=== PATIENT | female | born 1980 | race Caucasian/White ===

== ENCOUNTER → 2017-09-18 | Outpatient (CLI) | payer BC ==
[~2017-09-18] MED LIST: Gadobenate Dimeglumine 529 MG/1 ML (20ML VIAL) ONE
== END ==
LOC: BICMRI 13:24
PROVIDERS: ATTEND Nurse Practitioner Family
DX: Z80.3 Family history of malignant neoplasm of breast (principal)
CPT/HCPCS: A9579; C8908

== ENCOUNTER 2018-05-11 20:30 | Outpatient (CLI) | payer BC | END 2018-05-11 20:31 | disposition home or self-care (01) | LOC: SLEEPLAB 20:30 | PROVIDERS: ATTEND Family Medicine | DX: R40.0 Somnolence (principal); G47.33 Obstructive sleep apnea (adult) (pediatric); Z68.30 Body mass index [BMI] 30.0-30.9, adult | CPT/HCPCS: 95811 ==

== ENCOUNTER 2018-06-24 14:43 | Outpatient (CLI) | payer BC ==
--- NOTE | 2018-06-24 16:14 | BD ---
DEXA BONE MINERAL DENSITY STUDY: Date: 06/24/18 HISTORY: Osteoporosis screening. Postmenopausal. COMPARISON: None. FINDINGS: Femoral Neck: 0.851 T-Score: 0.0 Z-Score: 0.3 Total Femur: 1.041 T-Score: 0.8 Z-Score: 1.0 WHO Classification: Normal. Lumbar Spine: BMD (g/cm2) L1 0.900 T-Score: -0.8 Z-Score: -0.7 L2 1.117 T-Score: 0.8 Z-Score: 1.0 L3 1.164 T-Score: 0.7 Z-Score: 0.9 L4 1.170 T-Score: 1.0 Z-Score: 1.2 L1-L4 1.094 T-Score: 0.4 Z-Score: 0.6 WHO Classification: Normal. IMPRESSION: Normal bone mineral density. POS: [facility]
== END 2018-06-24 14:44 | disposition home or self-care (01) ==
LOC: BICMAMMO 14:43
PROVIDERS: ATTEND Family Medicine
DX: Z12.31 Encounter for screening mammogram for malignant neoplasm of breast (principal); Z13.820 Encounter for screening for osteoporosis; Z78.0 Asymptomatic menopausal state; Z80.3 Family history of malignant neoplasm of breast
CPT/HCPCS: 77063; 77067; 77080

== ENCOUNTER 2018-09-07 14:26 | Outpatient (CLI) | payer BC | END 2018-09-07 14:27 | disposition home or self-care (01) | LOC: CTENTCT 14:26 | PROVIDERS: ATTEND Otolaryngology Plastic Surgery within the Head & Neck | DX: J32.9 Chronic sinusitis, unspecified (principal) | CPT/HCPCS: 70486 ==

== ENCOUNTER 2018-09-15 08:26 | Day surgery (SDC) | payer BC ==
[2018-09-14 15:34] VITALS: BMI 29.4
[2018-09-15] MEDS ORDERED: Oxymetazoline HCl 0.05% ( 15 ML ) ONE ×2 (09:24→10:24)
[2018-09-15] MEDS ORDERED: PROPOFOL 200 MG/20 ML VIAL ONE (10:13)
[2018-09-15] MEDS ORDERED: Glycopyrrolate 0.2 MG/ML 5 ML SYRINGE ONE (10:13)
[2018-09-15] MEDS ORDERED: Rocuronium Bromide 10 MG/ML (10ML VIAL) ONE (10:13)
[2018-09-15] MEDS ORDERED: Lidocaine 1% PF 5 ML VIAL ONE (10:13)
[2018-09-15] MEDS ORDERED: Dexamethasone 20 MG/5 ML VIAL ONE (10:13)
[2018-09-15] MEDS ORDERED: Ondansetron PF 4 MG/2 ML Vial ONE (10:13)
[2018-09-15] MEDS ORDERED: Bacitracin Zinc Ointment 30 gm TUBE ONE (10:24)
[2018-09-15] MEDS ORDERED: Lidocaine 1% w/Epinephrine 1:100K 20 ML VIAL ONE (10:24)
[2018-09-15] MEDS ORDERED: Fentanyl 100 MCG/2 ML VIAL ONE ×3 (10:26→12:32)
[2018-09-15] MEDS ORDERED: Midazolam HCl 2 mg/2 ml Vial ONE (10:26)
[2018-09-15] MEDS ORDERED: Morphine 4 MG/ML VIAL ONE (12:20)
[2018-09-15] MEDS ORDERED: Morphine 2 MG/ML SYRINGE ONE ×2 (13:21→13:40)
[2018-09-15] MEDS ORDERED: Hydrocodone-Acetamin 15 ML UDCUP ONE (14:33)
--- NOTE | 2018-09-17 09:55 | OP ---
DATE OF PROCEDURE: 09/15/2018 PREOPERATIVE DIAGNOSES: 1. Chronic rhinosinusitis. 2. Nasal septal deviation. 3. Bilateral inferior turbinate hypertrophy. 4. Nasal obstruction. POSTOPERATIVE DIAGNOSES: 1. Chronic rhinosinusitis. 2. Nasal septal deviation. 3. Bilateral inferior turbinate hypertrophy. 4. Nasal obstruction. PROCEDURES PERFORMED: 1. Bilateral endoscopic sinus surgery, total ethmoidectomies. 2. Bilateral endoscopic sinus surgery maxillary antrostomies. 3. Bilateral endoscopic sinus surgery frontal sinusotomies. 4. Bilateral endoscopic sinus surgery sphenoidotomies. 5. Nasal septoplasty. 6. Bilateral inferior turbinate submucosal resection. ESTIMATED BLOOD LOSS: 20 mL. COMPLICATIONS: None. ANESTHESIA: GETA. PROCEDURE: Patient was taken to the operating room and placed supine on the table. General endotracheal anesthesia was obtained by the anesthesia staff. Tube was secured in the left lower lip. Patient was then placed in the beach chair position, and Afrin pledgets were placed in the nasal cavity. Injections of 1% lidocaine with 1:100,000 epinephrine were made into the nasal septum as well as the inferior turbinates. Patient was then prepped and draped in standard surgical fashion for nasal surgery. Following this, the Afrin pledgets were removed. A [place] incision was made on the left nasal septum. Submucoperichondrial dissection was performed. The deviated portions of the septum included portions of the cartilage and the bony septum. These isolated areas were removed using 3 cutting rongeurs. There was noted to be a large dorsal and caudal strut, left intact for support of the nose. The mucoperichondrial flaps were then reapproximated using a 4-0 gut stitch. Any straight pieces of cartilage were crushed prior to this and placed between the mucoperichondrial flaps. Following this, the inferior turbinates were then punctured with a submucosal coblation wand, and submucosal coblations were performed of multiple areas of the inferior portion of the anterior inferior turbinate. Please note that the submucosal microdebrider was used to submucosally resect the anterior and inferior portions of the inferior turbinates bilaterally. Following this, the 0-degree scope was advanced into the middle meatus. were gently medialized with a [employer] elevator. Following this, the uncinate process was exposed and was anteriorly fractured bilaterally using the ball-ended probe. The uncinate process was then removed bilaterally using the straight microdebrider and the up-biting [place] forceps. Following this, the ethmoidal bulla was identified bilaterally and was punctured on its medial and inferior aspects. Following this the ethmoidal bulla was removed bilaterally using the straight microdebrider and up-biting [place]akesley forceps. Following this, the grand lamella was identified and was punctured into the posterior ethmoidal cells. Working from posterior to anterior, the ethmoidal cells were opened, the sphenoid sinus ostia was identified and was gently widened using the 0-degree microdebrider medially and inferiorly bilaterally. Following this, and 40-degree microdebrider blade were used to further open the frontal recess cells exposing the frontal sinus ostia bilaterally. Following this, widened using the microdebrider bilaterally. Mirapex was placed within the middle meatus. Jackson splints were placed and secured. Job ID: [id number]
== END 2018-09-15 13:25 | disposition home or self-care (01) ==
LOC: SDC 08:26
PROVIDERS: ATTEND Otolaryngology Plastic Surgery within the Head & Neck
PROC: 09TL7ZZ Resection of Nasal Turbinate, Via Natural or Artificial Opening (ICD-10-PCS; principal; 2018-09-15)
PROC: 09TU8ZZ Resection of Right Ethmoid Sinus, Via Natural or Artificial Opening Endoscopic (ICD-10-PCS; principal; 2018-09-15)
PROC: 099T8ZZ Drainage of Left Frontal Sinus, Via Natural or Artificial Opening Endoscopic (ICD-10-PCS; principal; 2018-09-15)
PROC: 099Q8ZZ Drainage of Right Maxillary Sinus, Via Natural or Artificial Opening Endoscopic (ICD-10-PCS; principal; 2018-09-15)
PROC: 09SM0ZZ Reposition Nasal Septum, Open Approach (ICD-10-PCS; principal; 2018-09-15)
PROC: 099X8ZZ Drainage of Left Sphenoid Sinus, Via Natural or Artificial Opening Endoscopic (ICD-10-PCS; principal; 2018-09-15)
PROC: 099S8ZZ Drainage of Right Frontal Sinus, Via Natural or Artificial Opening Endoscopic (ICD-10-PCS; principal; 2018-09-15)
PROC: 099R8ZZ Drainage of Left Maxillary Sinus, Via Natural or Artificial Opening Endoscopic (ICD-10-PCS; principal; 2018-09-15)
PROC: 099W8ZZ Drainage of Right Sphenoid Sinus, Via Natural or Artificial Opening Endoscopic (ICD-10-PCS; principal; 2018-09-15)
PROC: 09TV8ZZ Resection of Left Ethmoid Sinus, Via Natural or Artificial Opening Endoscopic (ICD-10-PCS; principal; 2018-09-15)
DX: J32.4 Chronic pansinusitis (principal); J34.2 Deviated nasal septum; J34.3 Hypertrophy of nasal turbinates; J34.89 Other specified disorders of nose and nasal sinuses; J30.9 Allergic rhinitis, unspecified; J35.1 Hypertrophy of tonsils; H69.83 Other specified disorders of Eustachian tube, bilateral; F40.01 Agoraphobia with panic disorder; Z79.899 Other long term (current) drug therapy; Z88.0 Allergy status to penicillin
CPT/HCPCS: 85014; J0131; J1100; J2001; J2250; J2270; J2405; J2704; J3010

== ENCOUNTER 2018-09-20 01:39 | Emergency (ER) | payer BC ==
[2018-09-20 03:26] LABS: BHCG - Serum Negative (NEGATIVE); Pregs Control Background? CLEAR/WHITE (CLR/WHITE); Pregs Control Bar Appear? YES (CONTROL BAR)
[2018-09-20 03:28] LABS: #Basophils 0.1 thou/uL (0.0-0.2); #Eosinphils 0.2 thou/uL (0.0-0.7); #Lymphocytes 1.5 thou/uL (1.20-3.40); #Monocytes 0.9 thou/uL (0.11-0.59); #Neutrophils 6.6 thou/uL (1.40-6.50); %Basophils 0.6 % (0.0-1.0); %Eosinophils 1.8 % (0.0-10.0); %Lymphocytes 16.6 % (21.0-51.0); Hemoglobin 14.7 g/dL (12.0-16.0); Mean Corpuscular HGB CONC 33.8 g/dL (32.0-36.0); Mean Corpuscular Volume 94.6 fL (78.0-98.0); Mean Platelet Volume 7.4 fL (7.4-10.4); Platelet Count 255 thou/uL (130-400); RBC Distribution Width 11.9 % (11.5-14.5); White Blood Cell (WBC) Count 9.2 thou/uL (4.8-10.8)
[2018-09-20 03:48] LABS: PTT 27.9 SEC (22.9-36.1); Prothrombin Time 12.7 SEC (12.0-14.7)
[2018-09-20] MEDS ORDERED: Ondansetron PF 4 MG/2 ML Vial ONE (03:55)
[2018-09-20] MEDS ORDERED: Oxymetazoline HCl 0.05% ( 15 ML ) ONE (03:56)
[2018-09-20] MEDS ORDERED: Ondansetron ODT 4 MG TAB ONE (03:56)
[2018-09-20] MEDS ORDERED: Diazepam 5 MG TAB ONE (04:10)
[2018-09-20] MEDS ORDERED: HYDROcodone/Acetaminophen 5/325 mg Tablet ONE (04:34)
== END 2018-09-20 05:03 | disposition home or self-care (01) ==
LOC: ERS 01:39
DX: R04.0 Epistaxis (principal); E03.9 Hypothyroidism, unspecified
CPT/HCPCS: 30903; 36415; 84703; 85025; 85610; 85730; J2405; Q0162

== ENCOUNTER 2018-09-22 08:44 | Day surgery (SDC) | payer BC ==
[2018-09-22] MEDS ORDERED: Oxymetazoline HCl 0.05% ( 15 ML ) ONE ×2 (10:10→10:39)
[2018-09-22] MEDS ORDERED: Lidocaine 1% w/Epinephrine 1:100K 20 ML VIAL ONE (10:10)
[2018-09-22 10:46] LABS: Hemoglobin 14.5 g/dL (12.0-16.0); Platelet Count 247 thou/uL (130-400)
[2018-09-22] MEDS ORDERED: Fentanyl 100 MCG/2 ML VIAL ONE ×4 (11:01→13:06)
[2018-09-22 11:05] LABS: ALT (SGPT) Less than 7 U/L (8-55); AST (SGOT) 10 U/L (5-34); Albumin 4.6 g/dL (3.5-5.0); Alkaline Phosphatase 65 U/L (40-150); Anion Gap 15 mmol/L (10-20); BUN (Urea Nitrogen) 13 mg/dL (7.0-18.7); Bilirubin, Total 0.5 mg/dL (0.2-1.2); Calc. Creatinine Clearance 0 mL/min (70-130); Calcium 10.1 mg/dL (7.8-10.44); Carbon Dioxide 26 mmol/L (22-29); Chloride 102 mmol/L (98-107); Estimated GFR-MDRD 81; Globulin 3.4 g/dL (2.4-3.5); Glucose 91 mg/dL (70-105); Potassium 4.1 mmol/L (3.5-5.1); Sodium 139 mmol/L (136-145)
[2018-09-22] MEDS ORDERED: Lidocaine 1% PF 5 ML VIAL ONE (11:44)
[2018-09-22] MEDS ORDERED: Ondansetron PF 4 MG/2 ML Vial ONE (11:44)
[2018-09-22] MEDS ORDERED: PROPOFOL 200 MG/20 ML VIAL ONE (11:44)
[2018-09-22] MEDS ORDERED: Dexamethasone 20 MG/5 ML VIAL ONE (11:44)
[2018-09-22] MEDS ORDERED: Succinylcholine Chloride 20 MG/ML 10 ml SYRINGE FS ONE (11:44)
[2018-09-22] MEDS ORDERED: Bacitracin Zinc Ointment 30 gm TUBE ONE (11:57)
[2018-09-22] MEDS ORDERED: Morphine 4 MG/ML VIAL ONE (12:48)
[2018-09-22] MEDS ORDERED: Morphine 2 MG/ML SYRINGE ONE (13:00)
[2018-09-22] MEDS ORDERED: Hydrocodone-Acetamin 15 ML UDCUP ONE (14:05)
--- NOTE | 2018-09-23 11:07 | OP ---
DATE OF PROCEDURE: 09/22/2018 PREOPERATIVE DIAGNOSES: 1. Epistaxis. 2. Chronic rhinosinusitis. POSTOPERATIVE DIAGNOSES: 1. Epistaxis. 2. Chronic rhinosinusitis. PROCEDURES: 1. Bilateral endoscopic nasal debridement. 2. Bilateral endoscopic control of epistaxis. ESTIMATED BLOOD LOSS: 20 mL. COMPLICATIONS: None. ANESTHESIA: GETA. DESCRIPTION OF PROCEDURE: The patient was taken to the operating room, placed supine on the table. General endotracheal anesthesia was obtained by Anesthesia staff. Tube was secured in the left lower lip. Patient was placed in a beach chair position, was prepped and draped for standard nasal procedure. Following this, the 0 degree endoscope was advanced in the nasal cavity. There were some blood clots that were suctioned using a Torres tip suction bilaterally. The left ethmoidal sinuses, maxillary sinus, and frontal sinus area was visualized. There was no active bleeding. On the right side, there was some oozing from the right middle turbinate as well as generalized oozing from the inflamed tissue in the ethmoidal area. A Valsalva was performed and there was no significant or active arterial bleeding noticed. The nasal cavity was then irrigated. The previously placed Surgicel was removed and a curved suction was then used to irrigate the maxillary sinus as well as frontal sinuses bilaterally. On this, Mirapex was placed within the middle meatus. Jackson splints were placed and secured to the nasal septum. The patient procedure tolerated the procedure well. Job ID: [id number]
== END 2018-09-22 15:29 | disposition home or self-care (01) ==
LOC: SDC 08:44
PROVIDERS: ATTEND Otolaryngology Plastic Surgery within the Head & Neck
PROC: 093K8ZZ Control Bleeding in Nasal Mucosa and Soft Tissue, Via Natural or Artificial Opening Endoscopic (ICD-10-PCS; principal; 2018-09-22)
DX: R04.0 Epistaxis (principal); J32.4 Chronic pansinusitis; H69.83 Other specified disorders of Eustachian tube, bilateral; J30.9 Allergic rhinitis, unspecified; F40.01 Agoraphobia with panic disorder; Z88.0 Allergy status to penicillin; Z88.5 Allergy status to narcotic agent; Z88.8 Allergy status to other drugs, medicaments and biological substances; Z79.899 Other long term (current) drug therapy; Z98.890 Other specified postprocedural states
CPT/HCPCS: 80053; 85014; 85018; 85049; J1100; J2001; J2270; J2405; J2704; J3010

== ENCOUNTER 2018-12-27 07:54 | Outpatient (CLI) | payer BC ==
--- NOTE | 2018-12-27 10:19 | MRI ---
BILATERAL BREAST MRI WITH AND WITHOUT IV CONTRAST AND 3D POSTPROCESSING ON AN INDEPENDENT WORKSTATION : Date: 12/27/18 HISTORY: Positive BRCA gene. Genetic susceptibility to malignant breast neoplasm. COMPARISON: Breast MRI of 09/18/17 and 03/05/17. CORRELATION: Bilateral mammograms of 06/24/18. FINDINGS: A few tiny cysts are again seen. No suspicious masses or enhancement is identified on either side. No axillary or internal mammary lymphadenopathy seen. The probable hemangioma in the left lobe of the liver is stable. IMPRESSION: BIRADS Category 2 - Benign findings. Return to age-appropriate screening based on risk factors. This exam was interpreted in consultation with Dr. Lev Garner, who concurs. POS: [facility]
== END 2018-12-27 07:55 | disposition home or self-care (01) ==
LOC: BICMRI 07:54
PROVIDERS: ATTEND Family Medicine
DX: Z15.01 Genetic susceptibility to malignant neoplasm of breast (principal)
CPT/HCPCS: A9577; C8908

== ENCOUNTER 2019-02-22 12:42 | Outpatient (CLI) | payer BC ==
--- NOTE | 2019-02-22 12:59 | RAD ---
EXAM: XR Foot Rt 3 View STANDARD DATE: 02/22/2019 12:00 AM INDICATION: Right foot pain for one month COMPARISON: None. FINDING: No acute fracture or subluxation demonstrated. The Lisfranc alignment appears within normal limits. No radiopaque foreign body is noted. IMPRESSION:No acute fracture or subluxation demonstrated.
== END 2019-02-22 12:43 | disposition home or self-care (01) ==
LOC: BICRAD 12:42
PROVIDERS: ATTEND Physician Assistant Medical
DX: M79.671 Pain in right foot (principal)

== ENCOUNTER 2019-05-27 07:20 | Outpatient (CLI) | payer BC ==
--- NOTE | 2019-05-27 08:01 | ULT ---
ULTRASOUND ABDOMEN LIMITED: (RIGHT UPPER QUADRANT) DATE: 05/27/2019 HISTORY: 38-year-old female with right upper quadrant abdominal pain FINDINGS: Gallbladder:No mural thickening, pericholecystic fluid, or sonographic Strickland's. 2 tiny polyps, 4 mm and 6 mm in size each. No gallstones or sludge identified. Common duct: 4 mm. Liver:Normal size and echogenicity. Large 5 x 3.5 x 5 cm hyperechoic mass in left lobe without shadow ing. Pancreas:Nonspecific sonographic appearance. Right kidney:No hydronephrosis. IMPRESSION: 1) large 5 cm mass in the left lobe of liver. Patient states that she had an MRI that showed hemangio ma in liver. No abdominal MRI is found on [facility] PACS. The report or the images of that MRI from outside institution should be presented to the radiologist for review so that an addendum can be issu ed to this ultrasound report. If that is not available, we recommend dedicated MRI of the abdomen, liver mass protocol, with and without contrast. (Or CT if MRI is contraindicated). 2) no sonographic evidence of cholelithiasis or cholecystitis. 3) incidental finding of a few tiny gallbladder polyps.
== END 2019-05-27 07:21 | disposition home or self-care (01) ==
LOC: SCSULT 07:20
PROVIDERS: ATTEND Internal Medicine Gastroenterology
DX: K21.9 Gastro-esophageal reflux disease without esophagitis (principal); R10.13 Epigastric pain; R19.4 Change in bowel habit; R16.0 Hepatomegaly, not elsewhere classified; K82.4 Cholesterolosis of gallbladder
CPT/HCPCS: 76705

== ENCOUNTER 2019-06-15 07:49 | Outpatient (CLI) | payer BC ==
--- NOTE | 2019-06-15 10:28 | CT ---
CT ABDOMEN WITH AND WITHOUT IV CONTRAST: CT PELVIS WITH IV CONTRAST: HISTORY: Abdominal pain. Liver lesion. FINDINGS: There are mild dependent changes in the lung bases. No calcified gallstones are seen. No calculi are seen in the kidneys, ureters or urinary bladder. No hydroureteronephrosis is noted on either side. Th e spleen, pancreas, adrenal glands and kidneys are normal. There is a 4 cm mass in the left lobe of the liver with peripheral nodular enhancement and incomplete filling on the delayed images. No free air, free fluid or lymphadenopathy is seen in the abdomen or pelvis. The small bowel loops ar e not abnormally dilated. The appendix is normal. A uterus is present. No osteolytic or osteoblastic lesions are identified. IMPRESSION: Findings suspicious for a left liver lobe hemangioma. Recommend confirmation with technetium 99m labeled RBC scan. POS: [facility]
== END 2019-06-15 07:50 | disposition home or self-care (01) ==
LOC: BICCT 07:49
PROVIDERS: ATTEND Internal Medicine Gastroenterology
DX: K76.9 Liver disease, unspecified (principal); R10.84 Generalized abdominal pain; R93.3 Abnormal findings on diagnostic imaging of other parts of digestive tract
CPT/HCPCS: 74178

== ENCOUNTER 2019-06-24 10:29 | Emergency (ER) | payer BC ==
--- NOTE | 2019-06-24 11:30 | CT ---
CT BRAIN NONCONTRAST: DATE: 06/24/2019 HISTORY: 38 year old female with altered mental status, nausea, facial paresthesia and blurred vision with hea dache. FINDINGS: There is no evidence of acute intra-axial or extra-axial hemorrhage. There is no midline shift or any other mass effect. There is no extra-axial fluid collection. There is no evidence of obstructive hydrocephalus. Calvarium is intact. IMPRESSION: No acute intracranial findings.
[2019-06-24 11:59] LABS: #Eosinphils 0.1 thou/uL (0.0-0.7); #Lymphocytes 2.2 thou/uL (1.20-3.40); #Monocytes 0.8 thou/uL (0.11-0.59); #Neutrophils 5.1 thou/uL (1.40-6.50); %Basophils 0.5 % (0.0-1.0); %Eosinophils 1.3 % (0.0-10.0); %Monocytes 9.9 % (0.0-10.0); %Neutrophils 62.3 % (42.0-75.0); Hemoglobin 15.2 g/dL (12.0-16.0); Mean Corpuscular HGB CONC 34.6 g/dL (32.0-36.0); Mean Corpuscular Hemoglobin 32.1 pg (27.0-31.0); Mean Corpuscular Volume 92.9 fL (78.0-98.0); Mean Platelet Volume 7.2 fL (7.4-10.4); Platelet Count 251 thou/uL (130-400); RBC Distribution Width 11.7 % (11.5-14.5); Red Blood Cell (RBC) Count 4.73 mill/uL (4.20-5.40); White Blood Cell (WBC) Count 8.2 thou/uL (4.8-10.8)
--- NOTE | 2019-06-24 12:04 | CT ---
CT ANGIOGRAM NECK WITH CONTRAST CT ANGIOGRAM BRAIN WITH CONTRAST: DATE: 06/24/2019 HISTORY: 38-year-old female with loss of consciousness, headache, and facial paresthesia after chiropractor ce rvical manipulation. TECHNIQUE: After IV contrast injection, arterial bolus chasing technique scan performed from aortic arch to vert ex of head. Coronal and sagittal 3-D MIP reconstructions. FINDINGS: No evidence of dissection, atherosclerotic plaque, or significant stenosis, of bilateral cervical and intracranial vertebral arteries, common carotid arteries, internal carotid arteries, anterior circulation yocha dehe of Justice, M1 segments of MCA's, basilar artery, posterior cerebrals, and superior cerebellars. Brachiocephalic and bilateral subclavian arteries are also normal. IMPRESSION: Negative
[2019-06-24 12:15] LABS: ALT (SGPT) 7 U/L (8-55); AST (SGOT) 15 U/L (5-34); Albumin 4.4 g/dL (3.5-5.0); Alkaline Phosphatase 64 U/L (40-110); Anion Gap 13 mmol/L (10-20); BUN (Urea Nitrogen) 17 mg/dL (7.0-18.7); Bilirubin, Total 0.4 mg/dL (0.2-1.2); Calc. Creatinine Clearance 0 mL/min (70-130); Calcium 9.5 mg/dL (7.8-10.44); Carbon Dioxide 25 mmol/L (22-29); Chloride 103 mmol/L (98-107); Estimated GFR-MDRD 89; Globulin 2.8 g/dL (2.4-3.5); Glucose 74 mg/dL (70-105); Potassium 3.5 mmol/L (3.5-5.1); Protein, Total 7.2 g/dL (6.0-8.3); Sodium 137 mmol/L (136-145)
[2019-06-24] MEDS ORDERED: Iopamidol-370 76% 500 ML 1 ML ONE (16:23)
== END 2019-06-24 14:01 | disposition home or self-care (01) ==
LOC: ERS 10:29
DX: R41.82 Altered mental status, unspecified (principal); E03.9 Hypothyroidism, unspecified; Z79.899 Other long term (current) drug therapy
CPT/HCPCS: 36415; 70450; 70496; 70498; 80053; 85025; 93005; Q9967

== ENCOUNTER 2019-07-19 08:03 | Outpatient (CLI) | payer BC ==
--- NOTE | 2019-07-19 12:37 | CT ---
EXAM: CTA abdomen and pelvis HISTORY: Breast cancer. Evaluate deep inferior epigastric perforating arteries for road freight firer flap re construction of the breast. COMPARISON: None TECHNIQUE: Multiple contiguous axial images were obtained a CTA of the abdomen and pelvis without and with contrast. Sagittal and coronal 3-D MIP reformats were performed. FINDINGS: LIVER: Unremarkable. GALLBLADDER: Unremarkable. KIDNEYS: Unremarkable. SPLEEN: Unremarkable. PANCREAS: Unremarkable. BOWEL: Unremarkable. RETROPERITONEUM: No lymphadenopathy ABDOMINAL WALL SOFT TISSUES: Unremarkable BONES: Degenerative changes in the spine. ABDOMINAL AORTA: Normal caliber without evidence of dissection or aneurysmal dilatation. CELIAC TRUNK: Patent SMA: Patent DONNA: Patent RENAL ARTERIES: Bilateral single renal arteries without significant atherosclerotic disease The bilateral deep inferior epigastric arteries are patent. These are seen within the central aspect of the rectus abdominis muscle bilaterally. The perforating artery on the right has a branch 7 mm from the anterior aspect of the rectus abdominis muscle. The perforating artery on the left has a bra nch approximately 1.6 cm from the anterior aspect of the rectus abdominis muscle. IMPRESSION: Deep inferior epigastric road freight firer arteries as above.
== END 2019-07-19 08:04 | disposition home or self-care (01) ==
LOC: CT 08:03
DX: Z15.01 Genetic susceptibility to malignant neoplasm of breast (principal)
CPT/HCPCS: 74174; 76377

== ENCOUNTER 2019-09-30 08:52 | Outpatient (CLI) | payer BC ==
--- NOTE | 2019-09-30 12:14 | NM ---
HEPATOBILIARY SCAN: HISTORY:Right upper quadrant pain. No gallstones and ultrasound of 05/27/2019 RADIOPHARMACEUTICAL: 5.3 mCi Technetium 99m Mebrofenin injected intravenously FINDINGS: There is normal tracer extraction by the liver with normal excretion into the biliary tracts and smal l bowel loops and normal filling of the gallbladder. The calculated gallbladder ejection fraction following an oral fatty meal measures 50%. IMPRESSION:Normal exam.
== END 2019-09-30 08:53 | disposition home or self-care (01) ==
LOC: NM 08:52
PROVIDERS: ATTEND Internal Medicine Gastroenterology
DX: R10.13 Epigastric pain (principal); R10.11 Right upper quadrant pain; K76.9 Liver disease, unspecified; Z86.010 Personal history of colon polyps
CPT/HCPCS: 78227; A9537

== ENCOUNTER 2020-01-20 09:49 | Outpatient (CLI) | payer BC ==
--- NOTE | 2020-01-20 14:59 | MRI ---
BILATERAL BREAST MRI WITH AND WITHOUT IV CONTRAST AND 3D POST PROCESSING ON AN INDEPENDENT WORK STATI ON: HISTORY: Positive BRCA gene. Genetic susceptibility to malignant breast neoplasm. COMPARISON: 12/27/2018. FINDINGS: A few tiny cysts are again seen. There has been interval development of a 2 cm peripherally enhancin g mass in the posterior aspect of the lower outer quadrant of the right breast. No axillary or inter nal lymphadenopathy is seen. The probable hemangioma in the left lobe of the liver is stable. IMPRESSION: BIRADS category 5: Highly suggestive of malignancy. RECOMMENDATIONS: A bilateral diagnostic mammogram and a right breast ultrasound should be performed. An ultrasound-gu ided right breast biopsy is recommended. Communication with Dr. Cy Yeung via [place] at 2:09 p.m. CODE CR
== END 2020-01-20 09:50 | disposition home or self-care (01) ==
LOC: BICMRI 09:49
PROVIDERS: ATTEND Obstetrics & Gynecology
DX: Z15.01 Genetic susceptibility to malignant neoplasm of breast (principal)
CPT/HCPCS: A9577; C8908

== ENCOUNTER 2020-01-26 13:52 | Outpatient (CLI) | payer BC ==
--- NOTE | 2020-01-26 15:33 | MMO ---
Bilateral MAMMO Bilat Diag [facility]Z. CLINICAL HISTORY: Patient is 39 years old and is seen for diagnostic exam. The patient has the following family history of breast cancer: paternal aunt, at age 40. The patient has no personal history of cancer. VIEWS: The views performed were: bilateral craniocaudal with tomosynthesis; bilateral mediolateral oblique with tomosynthesis; and bilateral mediolateral with tomosynthesis. FILMS COMPARED: The present examination has been compared to prior imaging studies performed at [facility] on 04/22/2019, and at [facility] on 12/27/2018, 01/20/2020 and 01/26/2020. This study has been interpreted with the assistance of computer-aided detection. MAMMOGRAM FINDINGS: There are scattered fibroglandular densities. There is a new lobular mass measuring 23 millimeters seen in the posterior upper-outer region of the right breast. In the left breast, there are no suspicious masses, calcifications or areas of architectural distortion. IMPRESSION: NEW MASS IN THE RIGHT BREAST IS HIGHLY SUGGESTIVE OF MALIGNANCY. BIOPSY IS RECOMMENDED. THE RESULTS OF THIS EXAM WERE SENT TO THE PATIENT. ACR BI-RADS Category 5 - Highly suggestive of malignancy - appropriate action should be taken MAMMOGRAPHY NOTE: 1. A negative mammogram report should not delay a biopsy if a dominant of clinically suspicious mass is present. 2. Approximately 10% to 15% of breast cancers are not detected by mammography. 3. Adenosis and dense breasts may obscure an underlying neoplasm. Reported by: SHAI JARQUIN MD Electonically Signed: [id number]
--- NOTE | 2020-01-26 18:31 | ULT ---
RIGHT BREAST ULTRASOUND: 01/26/20 HISTORY: Recent breast MRI demonstrates a category 5 lesion on the right. FINDINGS: Focused ultrasound of the right breast in the upper outer quadrant demonstrates a solid macrolobulate d hypoechoic mass measuring 2.0 x 1.4 x 1.6 cm correlating in size and location with the MRI finding. This is highly suggestive of malignancy. Focused ultrasound in the right axilla demonstrates no lymp hadenopathy. IMPRESSION: BIRADS 5: Highly Suggestive of Malignancy - Appropriate Action Should Be Taken Requires biopsy or surgical treatment. The patient reports that she is scheduled for an ultrasound guided biopsy to be performed by a breast surgeon on 01/27/20.
== END 2020-01-26 13:53 | disposition home or self-care (01) ==
LOC: BICMAMMO 13:52
PROVIDERS: ATTEND Obstetrics & Gynecology
DX: R92.8 Other abnormal and inconclusive findings on diagnostic imaging of breast (principal); R92.2 Inconclusive mammogram; N63.10 Unspecified lump in the right breast, unspecified quadrant
CPT/HCPCS: 77066; G0279

== ENCOUNTER 2020-02-03 06:49 | Outpatient (CLI) | payer BC, OTHER ==
[2020-02-03 14:34] LABS: Anion Gap 15 mmol/L (10-20); BUN (Urea Nitrogen) 17 mg/dL (7.0-18.7); Calc. Creatinine Clearance 0 mL/min (70-130); Calcium 9.4 mg/dL (7.8-10.44); Carbon Dioxide 22 mmol/L (22-29); Chloride 106 mmol/L (98-107); Estimated GFR-MDRD 86; Glucose 88 mg/dL (70-105); Potassium 4.1 mmol/L (3.5-5.1); Sodium 139 mmol/L (136-145)
[2020-02-04 11:35] LABS: SARS-CoV-2 MS2 Positive; SARS-CoV-2 N Gene Negative; SARS-CoV-2 S Gene Negative; SARS-CoV-2 orf1ab Negative
== END 2020-02-03 06:50 | disposition home or self-care (01) ==
LOC: LABBT 06:49
PROVIDERS: ATTEND Surgery
DX: Z01.812 Encounter for preprocedural laboratory examination (principal); Z11.59 Encounter for screening for other viral diseases; C50.911 Malignant neoplasm of unspecified site of right female breast
CPT/HCPCS: 80048; 87635; U0003

== ENCOUNTER 2020-02-03 13:40 | Outpatient (CLI) | payer BC, OTHER | END 2020-02-03 13:41 | disposition home or self-care (01) | LOC: ULT 13:40 | PROVIDERS: ATTEND Internal Medicine Hematology & Oncology | DX: Z51.11 Encounter for antineoplastic chemotherapy (principal); Z15.01 Genetic susceptibility to malignant neoplasm of breast; Z79.899 Other long term (current) drug therapy | CPT/HCPCS: 80048; 87635; 93306; U0003 ==

== ENCOUNTER 2020-02-08 13:27 | Day surgery (SDC) | payer BC ==
[2020-02-03 13:08] VITALS: BMI 32.8
[~2020-02-08 13:27] MED LIST changes: -Gadobenate Dimeglumine 529 MG/1 ML (20ML VIAL) ONE; +Lidocaine 1% PF 5 ML VIAL ONE; +PROPOFOL 200 MG/20 ML VIAL ONE
[2020-02-08] MEDS ORDERED: Fentanyl 100 MCG/2 ML VIAL ONE ×2 (16:31→16:58)
[2020-02-08] MEDS ORDERED: Bupivacaine 0.25% HCL 30 ML VIAL ONE (16:54)
[2020-02-08] MEDS ORDERED: Lidocaine 2% PF 5 ML VIAL ONE (16:55)
[2020-02-08] MEDS ORDERED: Levofloxacin 500 mg/D5W 100 ml Premix Bag ONE (16:55)
[2020-02-08] MEDS ORDERED: Midazolam HCl 2 mg/2 ml Vial ONE (16:58)
[2020-02-08] MEDS ORDERED: traMADol HCl 50 MG TAB ONE (18:35)
--- NOTE | 2020-02-08 18:35 | RAD ---
PORTABLE CHEST: 02/08/20 HISTORY: Mediport placement. Heart size within normal limits. Left sided Mediport catheter is seen. Catheter tip overlying the sup erior vena cava. No signs of pneumothorax. Lungs are clear of infiltrates. IMPRESSION: Mediport catheter placement. No signs of pneumothorax. POS: [facility]
--- NOTE | 2020-02-09 00:07 | OP ---
DATE OF PROCEDURE: 02/08/2020 PREOPERATIVE DIAGNOSIS: Breast cancer. POSTOPERATIVE DIAGNOSIS: Breast cancer. PROCEDURE: Tunneled central line with subcutaneous port (MediPort, CT injectable). ANESTHESIA: TIVA and local. ESTIMATED BLOOD LOSS: Minimal. COMPLICATIONS: None. FINDINGS: The tip of the catheter is at the atriocaval junction. DESCRIPTION OF PROCEDURE: The patient was taken to the operating room and laid supine on the operating room table. After sedation was obtained, bilateral neck and chest were prepped and draped in a sterile fashion. Local anesthetic was infiltrated over the left internal jugular vein. Internal jugular vein was cannulated using a 22-gauge finder needle followed by a Seldinger needle. Wire was passed with some difficulty into the superior vena cava under fluoro guidance. A small luis m is made at the wire entrance site. A separate 3-cm incision was made in the left upper chest below the collarbone. Subcutaneous pocket was made below the lower incision. Tubing for the MediPort tunneled from the inferior to superior incision, and introducer sheath was placed over the wire into the superior vena cava under fluoro guidance. The dilator and wire were removed. The end of catheter sewed into the sheath. The sheath was peeled away. The tip of the catheter is at the atriocaval junction. The MediPort tubing cut to fit the MediPort at the lower incision. The tubing is connected to the MediPort which was sewn to the chest wall in a subcutaneous pocket using Prolene. The MediPort flushes and draws blood without difficulty. It was flushed with a heparin flush. The wounds were all irrigated and closed using 3-0 Vicryl, 4-0 Monocryl, and Dermabond. The MediPort is left accessed and two Tegaderms used to cover it. The patient was sent to Recovery in stable condition. All instrument counts, needle counts, and lap counts are correct. Job ID: [id number]
== END 2020-02-08 19:05 | disposition home or self-care (01) ==
LOC: SDC 13:27
PROVIDERS: ATTEND Surgery
PROC: B518ZZA Fluoroscopy of Superior Vena Cava, Guidance (ICD-10-PCS; principal; 2020-02-08)
PROC: 02HV33Z Insertion of Infusion Device into Superior Vena Cava, Percutaneous Approach (ICD-10-PCS; principal; 2020-02-08)
PROC: 0JH60WZ Insertion of Totally Implantable Vascular Access Device into Chest Subcutaneous Tissue and Fascia, Open Approach (ICD-10-PCS; principal; 2020-02-08)
DX: C50.911 Malignant neoplasm of unspecified site of right female breast (principal); Z79.899 Other long term (current) drug therapy; Z88.0 Allergy status to penicillin; Z88.1 Allergy status to other antibiotic agents; Z88.5 Allergy status to narcotic agent
CPT/HCPCS: 71045; C1788; J0690; J1642; J1956; J2001; J2250; J2704; J3010; S0020

== ENCOUNTER 2020-05-16 15:20 | Outpatient (CLI) | payer BC ==
[~2020-05-16 15:20] MED LIST changes: +Iopamidol-370 76% 500 ML 1 ML ONE; -Lidocaine 1% PF 5 ML VIAL ONE; -PROPOFOL 200 MG/20 ML VIAL ONE
--- NOTE | 2020-05-16 16:10 | CT ---
CT ANGIOGRAM THORAX WITH IV CONTRAST AND 3-D RECONSTRUCTIONS CLINICAL INDICATION: Shortness of breath and chest pain a patient with history of breast cancer. COMPARISON: None FINDINGS: Pulmonary arteries: No filling defects are seen in the pulmonary arteries to suggest a pulmonary embo meryl. Aorta: The aorta is normal in caliber without evidence of an aortic dissection. Lungs: Minimal groundglass densities are seen in the lower lobes which may be a factor volume loss. N o consolidation or pleural effusion is identified. No pulmonary nodule, mass, or pleural effusion is seen. Mediastinum: A left-sided Mediport catheter is noted in place with tip at the distal SVC. Heart is at the upper limits of normal in size. No enlarged mediastinal lymph nodes are seen. Thyroid gland: Incompletely imaged. There is artifact through a portion of the left lobe of thyroid g land. A definite discrete nodule is not appreciated. Osseous structures: No suspicious lytic or sclerotic osseous lesion. Chest wall: No abnormality visualized. Upper abdomen: Within normal limits for phase of imaging. IMPRESSION: 1. No CT evidence of a pulmonary embolus. 2. Above findings discussed Dr. Coelho there
== END 2020-05-16 15:21 | disposition home or self-care (01) ==
LOC: CT 15:20
PROVIDERS: ATTEND Internal Medicine Hematology & Oncology
DX: J90 Pleural effusion, not elsewhere classified (principal); C50.811 Malignant neoplasm of overlapping sites of right female breast; Z15.01 Genetic susceptibility to malignant neoplasm of breast
CPT/HCPCS: 71275; 80053; 82248; 83615; 84100; 84550; Q9967

== ENCOUNTER 2022-03-06 09:31 | Outpatient (CLI) | payer BC | END 2022-03-06 09:32 | disposition home or self-care (01) | LOC: CTENTCT 09:31 | PROVIDERS: ATTEND Student in an Organized Health Care Education/Training Program | DX: J32.9 Chronic sinusitis, unspecified (principal) | CPT/HCPCS: 70486 ==

== ENCOUNTER 2023-12-28 08:38 | Outpatient (CLI) | payer BC | END 2023-12-28 08:39 | disposition home or self-care (01) | LOC: SCSMRI 08:38 → BICMRI 08:39 | PROVIDERS: ATTEND Internal Medicine | DX: E24.0 Pituitary-dependent Cushing's disease (principal) | CPT/HCPCS: 70553 ==